=== PATIENT | female | born 1955 | race Hispanic/Latino ===

== ENCOUNTER → 2019-03-16 | Day surgery (SDC) | payer BC ==
[2019-03-14 11:08] LABS: ANION GAP 12.6 mmol/L (8-16); BLOOD UREA NITROGEN 14 mg/dL (7-26); BUN/CREATININE RATIO 19 (6-25); CALCIUM 9.4 mg/dL (8.4-10.2); CARBON DIOXIDE 25 mmol/L (22-29); CHLORIDE 103 mmol/L (98-107); CREATININE, SERUM 0.72 mg/dL (0.57-1.11); EST GLOMERULAR FILTRATION RATE > 60 ML/MIN (60-); GLUCOSE 115 mg/dL (74-118); POTASSIUM 3.6 mmol/L (3.5-5.1); SODIUM 137 mmol/L (136-145)
[~2019-03-16] MED LIST: BUPIVACAINE 0.5%/EPI 30 ML SDV INJ ONE; CEFAZOLIN SOD 2 GM/D5W 50ML 50 ML IV ONE; DEXAMETHASONE SOD PHOS INJ 4 MG/ML VIAL ONE; FENTANYL CITRATE/PF 100MCG/2 ML INJ ONE; KETOROLAC TROMETHAMINE 30 MG/ML VIAL ONE; LEVOTHYROXINE75 MCG PO; LIDOCAINE HCL 2% LOCAL INJ 5 ML SDV VIAL INJ ONE; METOPROLOL SUCC50 MG PO; MIDAZOLAM HCL 2 MG/2 ML VIAL ONE; ONDANSETRON HCL INJ 2MG/ML 2ML 2 MG/ML VIAL ONE; PIOGLITAZONE HC45 MG PO; PROGESTERONE200 MG PO; PROPOFOL IV EMULSION 10 MG/ML 20 ML VIAL ONE; SEVOFLURANE INHAL SOLN 250 ML PEN BTL ONE; XIGDUO PO
[2019-03-16 09:50] VITALS: BP 151/77
--- NOTE | 2019-03-16 18:10 | Operative Report ---
DATE OF PROCEDURE: 03/16/2019 SURGEON: Matty Wagner MD PREOPERATIVE DIAGNOSES: Right knee lateral meniscus tear, right knee degenerative joint disease of the knee. POSTOPERATIVE DIAGNOSES: Right knee medial meniscus tear, right knee lateral meniscus tear, right knee degenerative joint disease of the knee, right knee intra-articular loose body. PROCEDURE PERFORMED: The patient underwent right knee exam under anesthesia, right knee arthroscopy, right knee partial medial meniscectomy, right knee partial lateral meniscectomy, right knee chondroplasty of the patella, the trochlea, the medial femoral condyle, the medial tibial plateau, the lateral femoral condyle, lateral tibial plateau, and removal of intra-articular loose bodies. MOVIE EXTRA: Ainsley Manley. ANESTHESIA: General endotracheal intubation anesthesia. IV FLUIDS: Per anesthesia record. BRIEF DESCRIPTION OF THE PATIENT'S OPERATIVE PROCEDURE: Ms. Benítez was taken to the operating room, placed in the supine position on the operating table. Following induction of general anesthesia as well as endotracheal intubation, the patient's right lower extremity was examined under anesthesia. She was found to have a mild effusion with the knee joint, but otherwise ligamentously stable knee. She had full range of motion of the knee joint at the time of surgery. The patient's lower extremity was prepped and draped in standard surgical fashion. A 2-port technique was used to provide this patient arthroscopic evaluation of the joint. Examination of suprapatellar pouch and medial lateral gutters found no evidence of loose bodies. There was, however, evidence of chondromalacia of the patella and trochlear surfaces. The scope was advanced to the medial compartment. Examination of compartment demonstrated an undersurface tear of the medial meniscus. There was also an intra-articular loose body within the medial compartment. There was chondromalacia articulating surfaces. A combination of biting forceps and a motorized shaver were used to resect the torn portion of meniscus. The shaver was also used to remove the intra-articular loose body. Chondroplasties of the medial femoral condyle and tibial plateau performed at this time. Scope was then advanced to the intercondylar notch. The anterior cruciate ligament was identified and found to be intact. Scope was advanced to lateral compartment. The patient was found to have a macerated mid and anterior horn lateral meniscus tear. A combination of biting forceps and motorized shaver were used to resect the torn portion of meniscus. There was also significant chondromalacia of the lateral femoral condyle, lateral tibial plateau. Chondroplasties of each of these surfaces were performed at this time. Scope was then placed in suprapatellar pouch chondroplasties of the patella and trochlea were performed. The knee was insufflated with sterile normal saline. Each of the portal sites were closed using 4-0 nylon suture. The portal sites as well as knee itself injected 0.5% Marcaine with epinephrine. Sterile dressings were applied. The patient was awakened taken to the postanesthesia care unit in stable condition. MD JOSEF Cohen/LALITA /[id number]
== END | disposition home or self-care (01) ==
LOC: OR 05:15
PROVIDERS: ATTEND Specialist
DX: S83.261A Peripheral tear of lateral meniscus, current injury, right knee, initial encounter (principal); S83.241A Other tear of medial meniscus, current injury, right knee, initial encounter; M17.11 Unilateral primary osteoarthritis, right knee; M23.41 Loose body in knee, right knee; M22.41 Chondromalacia patellae, right knee; R00.1 Bradycardia, unspecified; E11.9 Type 2 diabetes mellitus without complications; K29.70 Gastritis, unspecified, without bleeding; I10 Essential (primary) hypertension; X58.XXXA Exposure to other specified factors, initial encounter; Z01.810 Encounter for preprocedural cardiovascular examination; Z01.812 Encounter for preprocedural laboratory examination; Z68.38 Body mass index [BMI] 38.0-38.9, adult
CPT/HCPCS: 29880; 36415 ×2; 80048; 82948; 93005; J0690; J1100; J1885; J2001; J2250; J2405; J2704

== ENCOUNTER 2019-04-14 13:00 | Outpatient (RCR) | payer BC ==
[~2019-04-14 13:00] MED LIST changes: -BUPIVACAINE 0.5%/EPI 30 ML SDV INJ ONE; -CEFAZOLIN SOD 2 GM/D5W 50ML 50 ML IV ONE; -DEXAMETHASONE SOD PHOS INJ 4 MG/ML VIAL ONE; -FENTANYL CITRATE/PF 100MCG/2 ML INJ ONE; -KETOROLAC TROMETHAMINE 30 MG/ML VIAL ONE; -LIDOCAINE HCL 2% LOCAL INJ 5 ML SDV VIAL INJ ONE; -MIDAZOLAM HCL 2 MG/2 ML VIAL ONE; -ONDANSETRON HCL INJ 2MG/ML 2ML 2 MG/ML VIAL ONE; -PROPOFOL IV EMULSION 10 MG/ML 20 ML VIAL ONE; -SEVOFLURANE INHAL SOLN 250 ML PEN BTL ONE
== END 2019-04-24 ==
LOC: PT 13:00
PROVIDERS: ATTEND Family Medicine
DX: M25.561 Pain in right knee (principal)

== ENCOUNTER 2019-05-19 13:59 | Outpatient (RCR) | payer BC | END 2019-05-25 | LOC: PT 13:59 | PROVIDERS: ATTEND Family Medicine | DX: M25.561 Pain in right knee (principal) ==

== ENCOUNTER 2019-06-16 14:00 | Outpatient (RCR) | payer BC | END 2019-06-25 | LOC: PT 14:00 | PROVIDERS: ATTEND Family Medicine | DX: M25.561 Pain in right knee (principal) ==